=== PATIENT | male | born 2000 | race Caucasian/White ===

== ENCOUNTER 2022-02-08 00:45 | Emergency (ER) | payer SELFPAY ==
[2022-02-08 00:47] VITALS: BP 128/73; PULSE 68; RESP 18; TEMP 36.8; O2SAT 98; BMI 22.6
[2022-02-08 01:00] VITALS: BP 128/73; PULSE 70; O2SAT 97
--- NOTE | 2022-02-08 01:58 | [facility].EDWNDL ---
Discharge Plan Disposition Chief Complaint: Wound/Laceration Referrals Follow up/Referrals: Provider,Referral, [Primary Care Provider] - See instructions Clinical Impressions Clinical Impression: Laceration of hand involving extensor tendon Instructions Patient Instructions: DI for Laceration Repair Discharge ED Provider: Jose Perez Wound/Laceration HPI General Chief Complaint: Wound/Laceration Stated Complaint: Right hand laceration; AO cut on metal cracker off Time Seen by Provider: 02/08/22 01:58 Mode of Arrival: Ambulatory Source of Information: Patient and Medical Record Limitations: No Limitations Description of Symptoms (Recalled from ER Triage Doc. by RN): pt presented with a laceration on the right muddle knuckle after a slip amd fall at work. the pt stated that he fell back and attempted to catch himself and hit the knuckle on the edge of the sink History of Present Illness HPI narrative: acute lac rt middle finger after slip at work Onset (ago): hour(s) Extremity Location: Right: hand Place: work Patient tetanus UTD: Yes Context: accidental Associated symptoms: none PFSH PFSH Social History Smoking Status: Current every day smoker alcohol intake: never current occupational status: employed Travel in the last 8 weeks: None ROS Obtained: Yes All systems reviewed & no additional complaints except as documented Physical Exam General General appearance: alert Head Head exam: normocephalic Eye Eye exam: Present PERRL and EOMI ENT ENT exam: Present mucous membranes moist Neck Neck exam: Present trachea midline Respiratory Respiratory exam: Present normal lung sounds bilaterally Cardiovascular Cardiovascular exam: Present regular rate Abdominal Exam Abdominal exam: Present soft Extremities Exam Extremities exam: Present full ROM Neurological Exam Neurological exam: Present alert and oriented X3 Skin Skin exam: Present other (1 cm lac rt dorsum at 3rd mcp distal with partial ext tendon lac ) Medical Decision Making Medical Records Medical records reviewed: Yes I reviewed the patient's medical records. Andrew Inquiry Pt receiving controlled substance: No Vital Signs: 02/08/22 00:47 Temperature 98.2 F Temperature Source Oral Pulse Rate [Left] 68 Respiratory Rate 18 Blood Pressure [Right Arm] 128/73 Blood Pressure Mean [Right Arm] 91 02 Sat by Pulse Oximetry 98 Oxygen Delivery Method Room Air Lab Data Lab results reviewed: Yes I reviewed the patient's lab results. Physician Consults Physician Consulted: esperanza Reason -: Pt condition Comment/Response: refer to [facility] Medical Decision Narrative: has partial ext tendon rt hand - will close and refer to hand - [phone] Procedures Laceration Laceration 1: Site: hand Side (If applicable): right Size (cm): 1 Description: flap Depth: involves subcutaneous layer and involves tendon Local Anesthetic: lidocaine 1% Amount of anesthesia used (mL): 3.5 Pre-repair: wound explored Skin layer closed with: nylon Size (cm): 4-0 Number of sutures: 5 Technique: simple, interrupted Critical Care Time Critical Care Time Critical Care Time: No Attestation: On 02/08/22, the high probability of a clinically significant, sudden or life threatening deterioration of the following system(s) required my full and direct attention, intervention and personal management. The time I documented below is in addition to time spent performing reported procedures but includes the following listed in this critical care notation.
[2022-02-08 02:00] VITALS: BP 125/76; PULSE 80; O2SAT 97
[2022-02-08 02:22] VITALS: BP 125/76; PULSE 65; RESP 18; TEMP 37; O2SAT 98
[2022-02-08 02:34] VITALS: BP 125/76; PULSE 63; RESP 16; TEMP 36.6; O2SAT 98
== END 2022-02-08 02:36 | disposition home or self-care (01) ==
LOC: ER 01:02
PROVIDERS: Emergency Provider Emergency Medicine
DX: S61.411A Laceration without foreign body of right hand, initial encounter (principal); W19.XXXA Unspecified fall, initial encounter; Y99.0 Civilian activity done for income or pay
CPT/HCPCS: 12041; 99283